=== PATIENT | female | born 1935 | race Two or more races ===

== ENCOUNTER 2017-07-04 08:34 | Outpatient (CLI) | payer OTHER | END 2017-07-04 08:45 | disposition home or self-care (01) | LOC: SONOGRAMA 08:34 | DX: E04.2 Nontoxic multinodular goiter (principal) ==

== ENCOUNTER 2018-10-23 09:15 | Outpatient (CLI) | payer OTHER | END 2018-10-23 09:19 | disposition home or self-care (01) | LOC: SONOGRAMA 09:15 | DX: E04.2 Nontoxic multinodular goiter (principal) ==